=== PATIENT | female | born 1970 | race Two or more races ===

== ENCOUNTER 2019-10-14 14:01 | Emergency (ER) | payer OTHER ==
[~2019-10-14] VITALS: Ht 152.4 cm; Wt 52.2 kg
[2019-10-14 15:23] VITALS: BP 107/63
== END 2019-10-14 16:26 | disposition home or self-care (01) ==
LOC: ER 14:01
DX: L03.012 Cellulitis of left finger (principal)
CPT/HCPCS: 10060

== ENCOUNTER 2021-04-23 09:45 | Inpatient (IN) | payer OTHER ==
[~2021-04-23] VITALS: Ht 149.9 cm; Wt 51.5 kg
[2021-04-23] MEDS ORDERED: DONNATAL 5ml ORAL Elix (BELLADONNA ALK-PHENOBARB) PO ONE (10:00)
[2021-04-23] MEDS ORDERED: ALUM & MAG HYDROX-SIMETH LIQ(MAALOX) 30 ML PO ONE (10:00)
[2021-04-23] MEDS ORDERED: ONDANSETRON HCL 4 MG/2 ML VIAL IV ONE (10:00)
[2021-04-23] MEDS ORDERED: SODIUM CHLORIDE 0.9% 1,000 ML IV ONE ×2 (10:00)
[2021-04-23] MEDS ORDERED: LIDOCAINE VISCOUS 2% 15ML UD PO ONE (10:00)
[2021-04-23 10:39] LABS: Basophils # (auto) 0.1 10 ^3/uL (0-0.2); Basophils % (auto) 0.5 % (0.0-2.0); Eosinophils # (auto) 0 10 ^3/uL (0-0.8); Hematocrit 47.1 % (36.0-46.0); Hemoglobin 15.6 g/dL (12.2-16.2); Lymphocytes # (auto) 1.6 10 ^3/uL (0.4-5.4); Mean Corpuscular Hgb Conc. 33.2 g/dL (32.0-36.0); Mean Corpuscular Volume 93.3 fL (80.0-100.0); Monocytes # (auto) 0.7 10 ^3/uL (0-1.3); Monocytes % (auto) 6.3 % (0.0-12.0); Neutrophils # (auto) 8.6 10 ^3/uL (1.6-8.6); Neutrophils % (auto) 78.2 % (37.0-80.0); Red Blood Cells 5.05 10^6/uL (4.0-5.20); Red Cell Distribution Width 14.8 % (11.8-14.3)
[2021-04-23 10:47] LABS: Albumin 4.6 g/dL (3.4-5.0); Anion Gap 22 (5-15); Blood Urea Nitrogen 14 mg/dL (7-18); Calcium 9.1 mg/dL (8.5-10.1); Carbon Dioxide 12 mmol/L (21-32); Chloride 100 mmol/L (98-107); Glucose 108 mg/dL (74-106); Lipase 56 U/L (73-393); Potassium 4.1 mmol/L (3.5-5.1); Sodium 134 mmol/L (136-145)
[2021-04-23 10:57] LABS: Alanine Aminotransferase 56 U/L (13-56); Alkaline Phosphatase 146 U/L (45-117); Aspartate Aminotransferase 115 U/L (15-37); BUN/Creatinine Ratio 14.9; Bilirubin, Total 0.6 mg/dL (0.2-1.0); GFR African American 80 mL/min; GFR Non-African American 66 mL/min; Total Protein 9.8 g/dL (6.4-8.2)
[2021-04-23] MEDS ORDERED: PANTOPRAZOLE 40 MG/10 ML VIAL INJ IV ONE (11:00)
[2021-04-23 11:19] LABS: Urine Bacteria FEW /hpf (None Seen); Urine Blood TRACE /uL (Negative); Urine Hyaline Cast MANY /lpf (0 - 2); Urine Mucus FEW (None Seen); Urine WBC 3 /hpf (0 - 5)
[2021-04-23 11:51] LABS: Barbiturate Scree,Urine NEGATIVE (NEGATIVE); Cannabinoid Screen, Urine POSITIVE (NEGATIVE)
[2021-04-23 12:09] LABS: Amphetamine Screen, Urine NEGATIVE (NEGATIVE); Benzodiazephine Screen, Urine NEGATIVE (NEGATIVE); Cocaine Screen, Urine NEGATIVE (NEGATIVE); Opiate Scree,Urine NEGATIVE (NEGATIVE); Phencyclidine Screen, Urine NEGATIVE (NEGATIVE)
[2021-04-23] MEDS ORDERED: LORazepam 0.5 MG TAB PO PRN (13:45)
[2021-04-23] MEDS ORDERED: ONDANSETRON HCL 4 MG/2 ML VIAL IV PRN (13:45)
[2021-04-23] MEDS ORDERED: NITROGLYCERIN 0.4 MG SL TAB SL PRN (13:45)
[2021-04-23] MEDS ORDERED: MORPHINE SULFATE INJECTION 2 MG/ML SYRG IV PRN (13:45)
[2021-04-23] MEDS: SODIUM CHLORIDE 0.9% 1,000 ML IV SCH ×2 (14:04→22:24)
[2021-04-23 15:56] VITALS: BP 103/87
[2021-04-23 16:44] VITALS: BP 130/87
[2021-04-23] MEDS: SUCRALFATE 1 GM/10 ML ORAL SUSP PO SCH ×2 (17:02→22:24)
[2021-04-23 22:00] VITALS: BP 113/77
[2021-04-23] MEDS: PANTOPRAZOLE 40 MG TAB PO SCH (22:24)
[2021-04-24] MEDS: MORPHINE SULFATE INJECTION 2 MG/ML SYRG IV PRN ×4 (01:22→22:05)
[2021-04-24 05:47] VITALS: BP 111/69
[2021-04-24] MEDS: SUCRALFATE 1 GM/10 ML ORAL SUSP PO SCH ×4 (06:43→22:06)
[2021-04-24 09:00] VITALS: BP 113/76
[2021-04-24] MEDS: PRENATAL VITAMIN TAB PO SCH (10:00)
[2021-04-24] MEDS ORDERED: FERR1TAB36 PO (10:02)
[2021-04-24] MEDS ORDERED: FLUO-125 PO (10:02)
[2021-04-24] MEDS ORDERED: TRAZ50TA2 PO (10:02)
[2021-04-24] MEDS ORDERED: CYCL-839 PO (10:02)
[2021-04-24] MEDS ORDERED: MELO1TAB56 PO (10:02)
[2021-04-24] MEDS: SODIUM CHLORIDE 0.9% 1,000 ML IV SCH (10:16)
[2021-04-24] MEDS: PANTOPRAZOLE 40 MG TAB PO SCH ×2 (10:17→22:06)
[2021-04-24] MEDS: THIAMINE HCL 100 MG TAB PO SCH (10:17)
[2021-04-24] MEDS: FOLIC ACID 1 MG TAB PO SCH (10:17)
[2021-04-24] MEDS: NICOTINE 21MG/24 HR TOPICAL PATCH TD SCH (10:18)
[2021-04-24 12:11] LABS: INR 0.94 (0.9-1.15)
[2021-04-24 12:45] VITALS: BP 103/56
[2021-04-24 17:00] VITALS: BP 101/63
[2021-04-25] MEDS: SODIUM CHLORIDE 0.9% 1,000 ML IV SCH ×3 (02:09→18:29)
[2021-04-25 05:00] VITALS: BP 117/72
[2021-04-25 05:32] LABS: INR 0.97 (0.9-1.15); Partial Thromboplastin Time 26.5 sec (23.0-31.2)
[2021-04-25 05:39] LABS: BUN/Creatinine Ratio 8.3; Calcium 7.6 mg/dL (8.5-10.1); Potassium 3.3 mmol/L (3.5-5.1)
[2021-04-25 05:55] LABS: Basophils # (auto) 0 10 ^3/uL (0-0.2); Basophils % (auto) 0.7 % (0.0-2.0); Eosinophils # (auto) 0.1 10 ^3/uL (0-0.8); Eosinophils % (auto) 1.7 % (0.0-7.0); Hematocrit 34.2 % (36.0-46.0); Hemoglobin 11.5 g/dL (12.2-16.2); Lymphocytes # (auto) 2.5 10 ^3/uL (0.4-5.4); Lymphocytes % (auto) 43.6 % (10.0-50.0); Mean Corpuscular Hemoglobin 30.7 pg (28.0-32.0); Mean Corpuscular Hgb Conc. 33.7 g/dL (32.0-36.0); Mean Corpuscular Volume 91.1 fL (80.0-100.0); Monocytes # (auto) 0.4 10 ^3/uL (0-1.3); Monocytes % (auto) 7.8 % (0.0-12.0); Neutrophils # (auto) 2.6 10 ^3/uL (1.6-8.6); Neutrophils % (auto) 46.2 % (37.0-80.0); Nucleated Red Blood Cells % 0.2 %; Red Blood Cells 3.76 10^6/uL (4.0-5.20); White Blood Cell 5.6 10^3/uL (4.4-10.8)
[2021-04-25] MEDS: SUCRALFATE 1 GM/10 ML ORAL SUSP PO SCH ×4 (06:11→22:07)
[2021-04-25] MEDS: MORPHINE SULFATE INJECTION 2 MG/ML SYRG IV PRN ×2 (06:11→22:10)
[2021-04-25 09:00] VITALS: BP 104/66
[2021-04-25] MEDS: FOLIC ACID 1 MG TAB PO SCH (09:38)
[2021-04-25] MEDS: THIAMINE HCL 100 MG TAB PO SCH (09:38)
[2021-04-25] MEDS: PRENATAL VITAMIN TAB PO SCH (09:39)
[2021-04-25] MEDS: NICOTINE 21MG/24 HR TOPICAL PATCH TD SCH (09:39)
[2021-04-25] MEDS: PANTOPRAZOLE 40 MG TAB PO SCH ×2 (09:39→22:08)
[2021-04-25 12:00] VITALS: BP 130/69
[2021-04-25 16:59] VITALS: BP 105/70
[2021-04-25 22:00] VITALS: BP 127/73
[2021-04-26 05:00] VITALS: BP 109/72
[2021-04-26 05:49] LABS: Basophils # (auto) 0.1 10 ^3/uL (0-0.2); Eosinophils # (auto) 0.2 10 ^3/uL (0-0.8); Eosinophils % (auto) 2.6 % (0.0-7.0); Hematocrit 31.8 % (36.0-46.0); Hemoglobin 10.8 g/dL (12.2-16.2); Lymphocytes % (auto) 49.7 % (10.0-50.0); Mean Corpuscular Hemoglobin 31.2 pg (28.0-32.0); Mean Corpuscular Hgb Conc. 34.1 g/dL (32.0-36.0); Mean Corpuscular Volume 91.6 fL (80.0-100.0); Monocytes # (auto) 0.5 10 ^3/uL (0-1.3); Monocytes % (auto) 8.3 % (0.0-12.0); Neutrophils # (auto) 2.3 10 ^3/uL (1.6-8.6); Neutrophils % (auto) 38.4 % (37.0-80.0); Nucleated Red Blood Cells % 0.2 %; Red Blood Cells 3.47 10^6/uL (4.0-5.20); Red Cell Distribution Width 14.2 % (11.8-14.3)
[2021-04-26 06:27] LABS: BUN/Creatinine Ratio 9.7; Calcium 7.7 mg/dL (8.5-10.1)
[2021-04-26] MEDS: SODIUM CHLORIDE 0.9% 1,000 ML IV SCH (06:38)
[2021-04-26] MEDS: SUCRALFATE 1 GM/10 ML ORAL SUSP PO SCH ×4 (07:00→21:53)
[2021-04-26 09:00] VITALS: BP 106/59
[2021-04-26] MEDS: PRENATAL VITAMIN TAB PO SCH (10:00)
[2021-04-26] MEDS: FOLIC ACID 1 MG TAB PO SCH (10:00)
[2021-04-26] MEDS: PANTOPRAZOLE 40 MG TAB PO SCH ×2 (10:00→21:54)
[2021-04-26] MEDS ORDERED: POTASSIUM CHL 20MEQ/100ML 100 ML IV SCH (10:00)
[2021-04-26] MEDS: THIAMINE HCL 100 MG TAB PO SCH (10:00)
[2021-04-26] MEDS ORDERED: POTASSIUM EFFERVESENT TAB 25 MEQ GT ONE ×2 (10:15→15:30)
[2021-04-26] MEDS ORDERED: MORPHINE SULFATE INJECTION 2 MG/ML SYRG IV PRN (11:45)
[2021-04-26] MEDS ORDERED: HYDROmorphone HCL 2 MG/ML VL IV PRN (11:45)
[2021-04-26] MEDS ORDERED: METOCLOPRAMIDE HCL 5MG/ml INJ 2ml VIAL IV PRN (11:45)
[2021-04-26] MEDS ORDERED: ONDANSETRON HCL 4 MG/2 ML VIAL ONE (11:49)
[2021-04-26] MEDS ORDERED: fentaNYL CITRATE 100 MCG/2 ML VL ONE (11:49)
[2021-04-26] MEDS ORDERED: LIDOCAINE 2% (LOCAL ANESTH.) PF 5ml SDV ONE (11:49)
[2021-04-26] MEDS ORDERED: SODIUM CHLORIDE LOCK 10 ML ONE (11:49)
[2021-04-26] MEDS ORDERED: MIDAZOLAM HCL 2MG/2ML 2ml VIAL (1mg/ml) ONE (11:49)
[2021-04-26] MEDS ORDERED: PROPOFOL 10 MG/ML 20 ML IV ONE (11:49)
[2021-04-26] MEDS: POTASSIUM CHL 20MEQ/100ML 100 ML IV SCH ×2 (15:11→18:05)
[2021-04-26] MEDS: NICOTINE 21MG/24 HR TOPICAL PATCH TD SCH (15:11)
[2021-04-26 17:00] VITALS: BP 109/69
[2021-04-26 20:00] VITALS: BP 125/74
[2021-04-26 22:00] VITALS: BP 125/74
[2021-04-27 05:16] VITALS: BP 110/63
[2021-04-27 06:12] LABS: Basophils # (auto) 0 10 ^3/uL (0-0.2); Basophils % (auto) 0.7 % (0.0-2.0); Eosinophils # (auto) 0.2 10 ^3/uL (0-0.8); Eosinophils % (auto) 2.8 % (0.0-7.0); Hematocrit 35.7 % (36.0-46.0); Hemoglobin 12.1 g/dL (12.2-16.2); Lymphocytes # (auto) 2.2 10 ^3/uL (0.4-5.4); Lymphocytes % (auto) 37.4 % (10.0-50.0); Mean Corpuscular Hemoglobin 31.3 pg (28.0-32.0); Mean Corpuscular Volume 92.1 fL (80.0-100.0); Monocytes # (auto) 0.3 10 ^3/uL (0-1.3); Monocytes % (auto) 5.6 % (0.0-12.0); Neutrophils # (auto) 3.1 10 ^3/uL (1.6-8.6); Neutrophils % (auto) 53.5 % (37.0-80.0); Nucleated Red Blood Cells % 0.1 %; Red Blood Cells 3.87 10^6/uL (4.0-5.20); White Blood Cell 5.9 10^3/uL (4.4-10.8)
[2021-04-27] MEDS: SUCRALFATE 1 GM/10 ML ORAL SUSP PO SCH (06:18)
[2021-04-27 06:28] LABS: BUN/Creatinine Ratio 10.9; Calcium 8.7 mg/dL (8.5-10.1); Potassium 3.8 mmol/L (3.5-5.1)
[2021-04-27 09:00] VITALS: BP 92/60
[2021-04-27] MEDS: NICOTINE 21MG/24 HR TOPICAL PATCH TD SCH (09:20)
[2021-04-27] MEDS: PANTOPRAZOLE 40 MG TAB PO SCH (09:22)
[2021-04-27] MEDS: THIAMINE HCL 100 MG TAB PO SCH (09:22)
[2021-04-27] MEDS: PRENATAL VITAMIN TAB PO SCH (09:23)
[2021-04-27] MEDS: FOLIC ACID 1 MG TAB PO SCH (09:23)
[2021-04-27 13:00] VITALS: BP 90/57
[2021-04-27] MEDS ORDERED: SUCR1SUS10 PO (13:20)
[2021-04-27] MEDS ORDERED: NIC21P TD (13:20)
[2021-04-27] MEDS ORDERED: PANT40T PO (13:20)
[2021-04-27 14:19] VITALS: BP 120/70
== END 2021-04-27 16:40 | disposition home or self-care (01) | DRG 243 ==
LOC: EDBD 09:45 → ER 09:45 → WEST WING 13:39 → ER 14:57
PROVIDERS: ADMIT Nurse Practitioner Acute Care; ATTEND Internal Medicine Pulmonary Disease
PROC: 0DJ08ZZ Inspection of Upper Intestinal Tract, Via Natural or Artificial Opening Endoscopic (ICD-10-PCS; principal; 2021-04-26 12:43)
DX: K20.90 Esophagitis, unspecified without bleeding (principal); E86.0 Dehydration; K29.80 Duodenitis without bleeding; F10.10 Alcohol abuse, uncomplicated; F41.9 Anxiety disorder, unspecified; G89.29 Other chronic pain; E87.6 Hypokalemia; R00.0 Tachycardia, unspecified; Y90.0 Blood alcohol level of less than 20 mg/100 ml; M54.9 Dorsalgia, unspecified; F12.90 Cannabis use, unspecified, uncomplicated; F17.210 Nicotine dependence, cigarettes, uncomplicated; Z20.822 Contact with and (suspected) exposure to COVID-19; M19.90 Unspecified osteoarthritis, unspecified site; F19.10 Other psychoactive substance abuse, uncomplicated; M81.0 Age-related osteoporosis without current pathological fracture; Z80.3 Family history of malignant neoplasm of breast; Z80.41 Family history of malignant neoplasm of ovary; Z83.3 Family history of diabetes mellitus
CPT/HCPCS: 36415; 71045; 74176; 80048; 80053; 80307; 80320; 81001; 81025; 83690; 84484; 85025; 85610; 85730; 86850; 86900; 86901; 87426; 93005; 93306; 96361; 96374; C9113; G0378; J2001; J2250; J2405; J2704; J3480

== ENCOUNTER 2025-09-21 10:13 | Emergency (ER) | payer MEDICAID, OTHER ==
[~2025-09-21] VITALS: Ht 157.5 cm; Wt 50.0 kg
[~2025-09-21 10:13] MED LIST: CYCL-839 PO; FERR1TAB36 PO; FLUO-125 PO; MELO15TA29 PO; NIC21P TD; PANT40T PO; SUCR1SUS26 PO; TRAZ-227 PO
[2025-09-21 10:49] LABS: Anion Gap 20 (5-15); Carbon Dioxide 21 mmol/L (20-31); Chloride 100 mmol/L (98-107); Sodium 141 mmol/L (136-145)
[2025-09-21 10:50] LABS: Calcium 9.9 mg/dL (8.7-10.4)
[2025-09-21 10:51] LABS: Hematocrit 41.8 % (36.0-46.0); Hemoglobin 14.1 g/dL (12.2-16.2); Mean Corpuscular Hemoglobin 30.7 pg (28.0-32.0); Mean Corpuscular Volume 90.9 fL (80.0-100.0); Nucleated Red Blood Cells % 0.1 %; Potassium 2.6 mmol/L (3.5-5.1)
[2025-09-21 10:55] LABS: BUN/Creatinine Ratio 14.3 (10.0-20.0); Blood Urea Nitrogen 9 mg/dL (9-23)
[2025-09-21 11:01] LABS: Glucose 69 mg/dL (74-106)
[2025-09-21 11:51] LABS: Acetaminophen < 2.0 UG/ML (10.0-20.0); Salicylate < 3.0 mg/dL (-30)
[2025-09-21] MEDS: LORazepam 0.5 MG TAB PO ONE (12:26)
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
[2025-09-21] MEDS: POTASSIUM CHL 20MEQ/100ML 100 ML IV SCH (12:50)
[2025-09-21 13:00] VITALS: PULSE 79; RESP 21; O2SAT 94
[2025-09-21] MEDS: HALOPERIDOL LACTATE 5 MG/ML INJ VIAL IM ONE (14:15)
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
[2025-09-22 08:00] VITALS: PULSE 63; RESP 21; O2SAT 94
[2025-09-22 13:19] VITALS: BP 92/58; PULSE 57; RESP 16; TEMP 98.5; O2SAT 95
[2025-09-23 12:33] LABS: Hepatitis A Total Antibody Positive (Negative); Hepatitis B Surface Antigen Negative (Negative); Hepatitis C Antibody Negative (Negative)
== END 2025-09-22 16:14 | disposition home or self-care (01) ==
LOC: EDBD 10:13 → ER 10:13
DX: F41.1 Generalized anxiety disorder (principal); F17.210 Nicotine dependence, cigarettes, uncomplicated; Z79.899 Other long term (current) drug therapy
CPT/HCPCS: 36415; 80048; 80320; 80329; 85025; 86703; 86704; 86706; 86708; 86803; 87340; 96365; 96366; 96372; 99285; J1630; J3480